=== PATIENT | female | born 1990 | race Caucasian/White ===

== ENCOUNTER 2020-06-20 22:57 | Emergency (ER) | payer MEDICAID, SELFPAY ==
[2020-06-21 01:14] VITALS: BP 119/76; PULSE 89; RESP 16; TEMP 36.8; O2SAT 96; BMI 29.6
--- NOTE | 2020-06-21 01:34 | PC.NURSE ---
MD at bedside for eval. Plan for Strep/Covid swab and DC home.
--- NOTE | 2020-06-21 01:42 | PC.NURSE ---
Anisa and Covid obtained and sent.
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
[2020-06-21] MEDS: Ibuprofen 600 MG TABLET PO (01:50)
[2020-06-21] MEDS: Penicillin V Potassium 250 MG TABLET 500 MG PO (01:50)
--- NOTE | 2020-06-21 01:51 | PC.NURSE ---
Medicated per MAR. Awaiting results of swabs.
[2020-06-21 02:02] LABS: COVID-19 Test Negative (Negative)
== END 2020-06-21 02:10 | disposition home or self-care (01) ==
PROVIDERS: Emergency Provider Emergency Medicine Emergency Medical Services; PCP Family Medicine
DX: J31.2 Chronic pharyngitis (principal); J02.8 Acute pharyngitis due to other specified organisms; R53.83 Other fatigue; Z20.822 Contact with and (suspected) exposure to COVID-19; Z79.899 Other long term (current) drug therapy
CPT/HCPCS: 36415; 87635; 87880; 99283

== ENCOUNTER 2021-03-14 10:13 | Outpatient (REF) | payer MEDICAID, SELFPAY ==
--- NOTE | ~2021-03-14 | XR_ITS ---
EXAMINATION: XR SHOULDER, LEFT CLINICAL INFORMATION: Pain in left shoulder. COMPARISON: Chest radiograph 06/21/2019. Left shoulder radiographs 05/07/2019. TECHNIQUE: AP external rotation, Grashey, scapular Y, and axillary views of the left shoulder. FINDINGS: Glenohumeral and acromioclavicular joint spacing and alignment are normal in appearance. No dystrophic soft tissue calcifications, fractures or arthropathic changes are identified. The visualized left ribs and lung are normal in appearance. XR/XR shoulder LT min 2V IMPRESSION: Normal radiographs of the left shoulder.
== END 2021-03-14 10:14 | disposition home or self-care (01) ==
LOC: HO.XRAY 10:13
PROVIDERS: Absent Provider Family Medicine; PCP Family Medicine; Visit Provider Internal Medicine Geriatric Medicine
DX: M25.512 Pain in left shoulder (principal)
CPT/HCPCS: 73030

== ENCOUNTER 2021-05-11 18:17 | Emergency (ER) | payer OTHER, MEDICAID, SELFPAY ==
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
[2021-05-11 20:42] VITALS: BP 130/78; PULSE 78; RESP 16; TEMP 36.9; O2SAT 98; BMI 31.1
[2021-05-11 23:33] VITALS: BP 122/75; PULSE 77; RESP 14; TEMP 37; O2SAT 99
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
[2021-05-12] MEDS: Ketorolac Tromethamine 60 MG/2 ML VIAL IM (00:14)
== END 2021-05-12 02:35 | disposition home or self-care (01) ==
PROVIDERS: Emergency Provider Emergency Medicine Emergency Medical Services; PCP Family Medicine
DX: S13.4XXA Sprain of ligaments of cervical spine, initial encounter (principal); M54.2 Cervicalgia; G44.309 Post-traumatic headache, unspecified, not intractable; V43.02XA Car driver injured in collision with other type car in nontraffic accident, initial encounter; Y93.9 Activity, unspecified; Y92.410 Unspecified street and highway as the place of occurrence of the external cause; Y99.9 Unspecified external cause status; Z79.899 Other long term (current) drug therapy
CPT/HCPCS: 70450; 72125; 96372; 99284; J1885

== ENCOUNTER 2021-09-29 15:44 | Emergency (ER) | payer MEDICAID, SELFPAY ==
--- NOTE | ~2021-09-29 | US_ITS ---
EXAMINATION: US OBSTETRICAL PELVIC AND TRANSVAGINAL CLINICAL INFORMATION: 7-weeks . Bleeding. Lower abdominal pain. Beta hCG equals 209,636. COMPARISON: None LMP: 08/05/2021 Gestational age by maternal dates is 7 weeks 6 days. Estimated date of delivery by maternal dates is 05/12/2022. TECHNIQUE: Transabdominal and transvaginal Grayscale Doppler, and cine images were obtained. FINDINGS: There is a single intrauterine gestational sac within the endometrial cavity with 2 separate poles. There appear to be 2 separate gestational sacs and unremarkable-appearing yolk sacs. Twin A demonstrates a crown-rump length of 1.0 cm corresponding to a gestational age of 7 weeks and 0 days and Twin B demonstrates a crown-rump length of 1.2 cm corresponding to a gestational age of 7 weeks and 3 days. There is a partially visualized probable membrane interposed between the poles. There is no significant subchorionic hemorrhage or hematoma. HR: Twin A demonstrates a heart rate of 142 bpm and Twin B demonstrates a heart rate of 153 BPM. MATERNAL ADNEXA: The right maternal ovary measures 3 x 2.4 x 2.7 cm. There is a right-sided probable corpus luteum measuring 1.7 x 1.5 x 1.7 cm. The left maternal ovary measures 1.9 x 1.1 x 1.6 cm. There is a left ovarian simple cyst versus follicle measuring 0.8 cm. There is no significant maternal adnexal mass. No maternal pelvic ascites. US/US OB pelvic and transvaginal IMPRESSION: 1. Single intrauterine gestational sac with 2 separate poles and yolk sacs as well as likely 2 separate gestational sacs. Findings are consistent with monochorionic diamniotic twins. Twin A demonstrates a heart rate of 142 bpm and Twin B demonstrates a heart rate of 153 BPM. No evidence of subchorionic hemorrhage. 2. Probable right ovarian corpus luteum measuring up to 1.7 cm.
[2021-09-29 15:45] VITALS: BP 141/88; PULSE 75; TEMP 36.8; O2SAT 99; BMI 32.1
[2021-09-29 16:47] LABS: MANUAL DIFF FLAG NO
[2021-09-29 16:48] LABS: Appearance Urine CLEAR; Basophils Percent Auto 0.2 % (0-2); Color Urine YELLOW; Eosinophils Absolute Auto 0.1 X10*3/uL (0.0-0.4); Eosinophils Percent Auto 0.4 % (0-4); Glucose Urine UA NEG (NEG); Hematocrit 38.4 % (37.0-47.0); Hemoglobin 13.1 g/dl (12.0-16.0); Imm Gran Abs Auto 0.05 X10*3/uL (0.00-0.03); Imm Gran Pct Auto 0.4 % (0.0-0.4); Leukocyte Esterase Urine NEG (NEG); Lymphocytes Absolute Auto 2.3 X10*3/uL (1.2-4.9); Lymphocytes Percent Auto 16.4 % (20-40); Mean Corpuscular HGB Conc 34.1 g/dl (31.0-35.0); Mean Corpuscular Hemoglobin 29.8 pg (27.0-33.0); Mean Corpuscular Volume 87.3 fL (80.0-98.0); Mean Platelet Volume 9.6 fL (9.4-12.3); Monocytes Absolute Auto 0.8 X10*3/uL (0.1-1.2); Monocytes Percent Auto 5.7 % (2-11); Neutrophils Absolute Auto 10.6 x10*3/uL (2.0-8.3); Neutrophils Percent Auto 76.9 % (45-73); Nitrite Urine NEG (NEG); Platelet Count 273 X10*3/uL (160-400); Red Cell Distribution Width 12.2 % (11.0-16.0); Specific Gravity - Urine >= 1.030 (1.005-1.025); UACC Culture Trigger NO; Urine Blood 3+ (NEG); Urine Ketones 40 MG/DL (NEG); Urine Protein NEG (NEG-TRACE); White Blood Count 13.8 X10*3/uL (4.8-10.8)
[2021-09-29 16:58] LABS: Squamous Epithelial Cell Urine 1+ /LPF
[2021-09-29 16:59] LABS: Bacteria Urine TRACE /LPF; Mucus Urine TRACE /LPF
[2021-09-29 17:15] LABS: Anion Gap 12 (12-20); Blood Urea Nitrogen 6 mg/dL (9-16); Calcium 10.4 mg/dL (8.4-10.2); Carbon Dioxide 23 mmol/L (22-29); Chloride 104 mmol/L (96-108); Creatinine Clr Calc Pharmacy 125.5; Estimated Glomerular Filt Rate > 60; Glucose Random 88 mg/dL (60-115); Potassium 4.2 mmol/L (3.3-5.1); Sodium 135 mmol/L (135-145)
[2021-09-29 17:26] VITALS: BP 111/70; PULSE 69; RESP 16; TEMP 37.1; O2SAT 100
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
[2021-09-29 20:00] VITALS: BP 127/79; PULSE 76; RESP 16; TEMP 36.6; O2SAT 98
== END 2021-09-29 20:09 | disposition home or self-care (01) ==
PROVIDERS: Emergency Provider Emergency Medicine Emergency Medical Services; PCP Family Medicine
DX: O20.0 Threatened abortion (principal); O09.11 Supervision of pregnancy with history of ectopic pregnancy, first trimester; O09.291 Supervision of pregnancy with other poor reproductive or obstetric history, first trimester; Z3A.01 Less than 8 weeks gestation of pregnancy
CPT/HCPCS: 36415; 76801; 76817; 80048; 81001; 84702; 85025; 86900; 86901; 99284

== ENCOUNTER 2023-04-02 11:34 | Outpatient (REF) | payer MEDICAID, SELFPAY ==
[2023-04-02 13:45] LABS: Estimated Average Glucose 103 mg/dL; Hemoglobin A1C 102.1388 umol/L; Hemoglobin A1c % 5.2 % (<6.0)
[2023-04-02 14:07] LABS: TSH reflex Free T4 3.28 uIU/mL (0.32-4.0); Vitamin D 25-OH Total 28.4 ng/mL (>30)
[2023-04-03 13:48] LABS: Calcium (PTHI) 10.1 mg/dL (8.6-10.2); PTHI 173 pg/mL (16-77)
== END 2023-04-02 11:35 | disposition home or self-care (01) ==
LOC: HO.HHCL 11:34
PROVIDERS: Visit Provider Family Medicine
DX: E55.9 Vitamin D deficiency, unspecified (principal); R94.6 Abnormal results of thyroid function studies
CPT/HCPCS: 36415; 82306; 83036; 83970; 84443

== ENCOUNTER 2023-08-11 10:21 | Outpatient (AMB) | payer MEDICAID, SELFPAY ==
--- NOTE | 2023-08-11 10:22 | MHC.OFFVIS ---
Intake Vital Signs 08/11/23 10:29 Height 5 ft 1 in Weight 186 lb BMI 35.1 BP 118/76 Blood Pressure Location Rt brachial Position Sitting Pulse 83 Intake Visit Reasons: umbilical hernia Intake Note: This patient was referred by Dr. Saul for an assessment for an umbilical hernia. Patient c/o; reports occasional sharp pain, last time patient experinced pain it lasted about 10 minutes and then it went away, reports no change in bowel habits, reports bulge. [employer] Sk[employer] Rink Required: No Accompanied by: Self / Same As Patient Allergies No Known Allergies Allergy (Unknown, Verified 08/11/23 10:29) HPI umbilical hernia HPI Details 33-year-old female referred for an umbilical hernia. She states that she has had this lump on her umbilicus since she was about 8 years ago. Since then, she has been noticing sharp pains on the area. She does not think that the hernia is getting bigger. She does have some tenderness on the area. She denies GI complaints. [facility] Medical History (Updated 08/11/23 @ 10:44 by Estevan Arias MD) Umbilical hernia Thyroid disease No known health problems Surgical History No pertinent past surgical history Family History Family/Other Cancer Social History Alcohol intake: never Patient Tobacco Use Status: Never used Tobacco Review of Systems Const Denies chills and Denies fever(s) Card Denies chest pain, Denies dyspnea and Denies dyspnea on exertion Resp Denies cough, Denies dyspnea and Denies dyspnea on exertion GI Denies hematochezia and Denies change in bowel habits Denies hematuria Musc Denies back pain and Denies limited range of motion Neuro Denies focal weakness and Denies convulsions Psych Denies depression and Denies mood swings Physical Exam Vital Signs: Last Vital Signs Pulse 83 08/11/23 10:29 BP 118/76 08/11/23 10:29 BMI result Body Mass Index 35.1 Const General: comfortable and no acute distress Orientation/consciousness: patient oriented x3 Neck Neck: Yes no lymphadenopathy Resp Auscultation: clear to auscultation bilaterally Cardio Rhythm: regular rhythm GI Other: Umbilical hernia, obvious with Valsalva, about 2 cm in diameter Palpation (GI): Soft to palpation, nontender and no guarding Neuro General: patient oriented x3 Assessment & Plan Assessment & Plan (1) Umbilical hernia: Code(s): K42.9 - Umbilical hernia without obstruction or gangrene Plan: She has this umbilical hernia, reducible, about 2 cm in diameter as described above. She describes pain and tenderness on the area. She wants to proceed with repair. I explained to her the technique of repair with possible mesh placement. I reviewed the risks including but not limited to bleeding, infections, bowel injury, recurrence, as well as the benefits and alternatives. She understands and wants to proceed. I also reviewed with her what to expect postoperatively especially with care. Coding Level of Care Code New Pt Level 3 (27031) Diagnoses Umbilical hernia K42.9
[2023-08-11 10:29] VITALS: BP 118/76; PULSE 83; BMI 35.1
== END 2023-08-11 10:43 | disposition home or self-care (01) ==
PROVIDERS: PCP Family Medicine; Referring Provider Family Medicine; Visit Provider Surgery
DX: K42.9 Umbilical hernia without obstruction or gangrene (principal)
CPT/HCPCS: 99203

== ENCOUNTER → 2023-08-11 10:21 | Outpatient (BNVA) | payer MEDICAID, SELFPAY | PROVIDERS: PCP Family Medicine; Visit Provider Surgery | DX: K42.9 Umbilical hernia without obstruction or gangrene (principal) | CPT/HCPCS: 99202 ==

== ENCOUNTER 2023-08-13 09:45 | Outpatient (REF) | payer MEDICAID, SELFPAY ==
[2023-08-13 12:13] LABS: Anion Gap 9 (12-20); Blood Urea Nitrogen 8 mg/dL (9-16); Calcium 10.3 mg/dL (8.4-10.2); Carbon Dioxide 28 mmol/L (22-29); Chloride 107 mmol/L (96-108); Estimated Glomerular Filt Rate > 60; Glucose Random 111 mg/dL (60-115); Potassium 4.1 mmol/L (3.3-5.1); Sodium 140 mmol/L (135-145)
[2023-08-13 12:17] LABS: Free T4 (Free Thyroxine) 0.79 ng/dL (0.71-1.85); Thyroid Stimulating Hormone 3.66 uIU/mL (0.32-4.0)
[2023-08-13 14:09] LABS: Parathyroid Hormone Intact 148.4 pg/mL (8.7-77.1)
[2023-08-14 15:54] LABS: Calcium, Ionized 5.6 mg/dL (4.7-5.5)
== END 2023-08-13 09:46 | disposition home or self-care (01) ==
LOC: HO.HHCL 09:45
PROVIDERS: Visit Provider Family Medicine
DX: R79.89 Other specified abnormal findings of blood chemistry (principal)
CPT/HCPCS: 36415; 80048; 82330; 83970; 84439; 84443

== ENCOUNTER 2023-08-21 13:19 | Outpatient (REF) | payer MEDICAID, SELFPAY ==
--- NOTE | ~2023-08-21 | US_ITS ---
EXAMINATION: US THYROID CLINICAL INFORMATION: Anterior neck fullness. COMPARISON: None available. TECHNIQUE: Linear transducer alex-scale and color Doppler examination with attention to the region of the thyroid. FINDINGS: SIZE: Measurements of the thyroid lobes and nodules are given in sagittal, anteroposterior and transverse dimensions respectively. Right Thyroid Lobe: 5.3 x 1.7 x 2.1 cm, volume 10.2 mL. Parenchyma: The gland echotexture is heterogeneous. Thyroid vascularity is normal. Left Thyroid Lobe: 5.1 x 1.7 x 2.3 cm, volume 10.2 mL. Parenchyma: The gland echotexture is heterogeneous. Thyroid vascularity is normal. Isthmus: 0.6 cm in maximum AP dimension. No focal thyroid nodule is seen. NODES: No lymphadenopathy is seen in the tissue surrounding the thyroid gland. US/US thyroid IMPRESSION: Unremarkable thyroid ultrasound. ACR TI-RADS RECOMMENDATION REFERENCE: Ultrasound-guided fine-needle aspiration, followup ultrasound, no further follow up. * TR1 (0 point) and TR2 (2 points): No FNA or follow up. * TR3 (3 points): FNA if more than or equal to 2.5 cm in maximum dimension, followup ultrasound in 1, 3 and 5 years if 1.5 to 2.4 cm in maximum dimension. * TR4 (4-6 points): FNA if more than or equal to 1.5 cm in maximum dimension, followup ultrasound in 1, 2, 3 and 5 years if 1 to 1.4 cm in maximum dimension. * TR5 (more than or equal to 7 points): FNA if more than or equal to 1 cm in maximum dimension, followup ultrasound every year for 5 years if 0.5 to 0.9 cm in maximum dimension. * TR3, TR4 or TR5 nodules that are below the size threshold for followup receive no follow up.
== END 2023-08-21 13:20 | disposition home or self-care (01) ==
LOC: HO.US 13:19
PROVIDERS: PCP Family Medicine; Visit Provider Family Medicine
DX: R22.1 Localized swelling, mass and lump, neck (principal)
CPT/HCPCS: 76536

== ENCOUNTER → 2023-09-09 08:50 | Outpatient (BNVA) | payer MEDICAID, SELFPAY | PROVIDERS: PCP Family Medicine; Visit Provider Surgery ==

== ENCOUNTER 2023-09-16 14:25 | Outpatient (REF) | payer MEDICAID, SELFPAY | END 2023-09-16 14:26 | disposition home or self-care (01) | LOC: HO.HOSX 14:25 | PROVIDERS: Visit Provider Physician Assistant | DX: Z13.89 Encounter for screening for other disorder (principal) ==

== ENCOUNTER 2023-10-07 08:48 | Outpatient (REF) | payer MEDICAID, SELFPAY ==
--- NOTE | ~2023-10-07 | CT_ITS ---
EXAMINATION: CT SOFT TISSUE NECK WITH CONTRAST CLINICAL INFORMATION: Anterior neck fullness. COMPARISON: Ultrasound of the thyroid 08/21/2023. CT scan of the head and cervical spine 05/12/2021. TECHNIQUE: Following the intravenous administration of 60 mL of Omnipaque 350 intravenous contrast, helical imaging was performed in the axial plane with generation of coronal and sagittal reformatted images. This CT examination was performed using dose optimization techniques as appropriate, variously including the following: *Automated exposure control *Adjustment of mA and/or kV according to patient size (this includes techniques or standardized protocols for targeted exams where dose is matched to indication/reason for exam; i.e. extremities or head) *Use of iterative reconstruction technique DLP: 287 mGy-cm FINDINGS: There is no cervical adenopathy. There are mildly prominent cervical lymph nodes at multiple levels, most prominent in the right level IIA region. The parotid glands are homogeneous in attenuation. The submandibular glands are normal. There is slight asymmetry of the palatine tonsils, more prominent on the right, but without evidence of abscess formation. No contour abnormality or pathologic enhancement is seen within the oral cavity or pharyngeal mucosal space. There is a minimal amount of increased attenuation in the submental fat which is nonspecific. No radiodense foreign bodies or adjacent dental abnormalities are demonstrated. The laryngeal structures are normal. The parapharyngeal fat is preserved. The carotid sheath vasculature opacify normally. No extra mucosal soft tissue mass or fluid collection is seen. No retropharyngeal fluid collection is seen. The thyroid gland appears normal in size. There is a tubular, well-defined hyperdense area extending behind the body of the left lobe of the thyroid gland which measures 0.8 x 1.9 x 2.7 cm in oblique AP, transverse and craniocaudal dimensions. It has higher attenuation to the adjacent thyroid gland, and appears to be separate from it. The superior mediastinum is unremarkable. The lung apices are clear. The mastoid air cells and visualized portions of the paranasal sinuses are well-aerated. The temporomandibular joints are normal. No periapical disease is identified. No osseous abnormalities are seen. The imaged portions of the brain parenchyma are unremarkable. CT/CT soft tissue neck w IV con IMPRESSION: 1. There are mildly prominent cervical lymph nodes at multiple levels, most prominent in the right level IIA region. 2. There is a well-defined tubular hyperdense focus behind the left lobe of the thyroid gland, which may be consistent with a parathyroid adenoma with hypervascularity. This could be further evaluated with a parathyroid nuclear medicine scan with SPECT. 3. There is mild increased attenuation in the submental fat which is nonspecific. There are no radiodense foreign bodies or adjacent dental abnormalities. Correlate clinically.
[2023-10-07] MEDS: iohexoL 350 MG/ML 100 ML INFUS..BTL IV (09:25)
== END 2023-10-07 08:49 | disposition home or self-care (01) ==
LOC: HO.CT 08:48
PROVIDERS: PCP Family Medicine; Visit Provider Family Medicine
DX: R22.1 Localized swelling, mass and lump, neck (principal)
CPT/HCPCS: 70491; Q9967

== ENCOUNTER 2024-02-20 14:21 | Outpatient (REF) | payer MEDICAID, SELFPAY ==
--- NOTE | ~2024-02-20 | MM_ITS ---
EXAMINATION: BONE DENSITOMETRY CLINICAL INDICATION: Primary hyperparathyroidism. COMPARISON: This is the patient's baseline examination. TECHNIQUE: Using a [employer] DXA System (software version: 13.1) manufactured by [employer], dual-energy x-ray absorptiometry was performed of the lumbar spine, left hip and left forearm radius 33%. The images are of good technical quality. Based on ISCD (International Society for Clinical Densitometry) standards of reporting, Z-scores instead of T-scores are reported in this premenopausal woman. Summary results are attached. FINDINGS: LEFT FEMUR, NECK: BMD 0.917 g/cm2, T-score -0.9, Z-score -1.0, Z-score within expected range for age. LEFT FEMUR, TOTAL: BMD 0.946 g/cm2, T-score -0.5, Z-score -0.8, Z-score within expected range for age. AP SPINE L1-L4: BMD 1.024 g/cm2, T-score -1.3, Z-score -1.9, Z-score within expected range for age. LEFT FOREARM RADIUS 33%: BMD 0.933 g/cm2, T-score 0.7, Z-score 0.7, Z-score within expected range for age. IDENTIFIED RISK FACTORS: Hyperthyroidism , secondary osteoporosis (hyperthyroidism). HISTORY OF FRACTURE: None listed. MEDICATIONS: None listed. MM/XR DEXA appendicular skeleton IMPRESSION: 1. DIAGNOSIS: Based on the lowest Z-score value of -1.9 in the lumbar spine, the patient's bone density is within the expected range for age. 2. 10-YEAR FRACTURE RISK PREDICTION, FRAX: Not performed in this patient outside the age range of 40-90 years. 3. Treatment Recommendations: NOF guidelines recommend consideration for treatment in postmenopausal women and men age 50 and older presenting with the following: -A hip or vertebral (clinical or morphometric) fracture. -T-score less than or equal to -2.5 at the femoral neck or spine after appropriate evaluation to exclude secondary causes. -Low bone mass at the hip or spine and a 10-year fracture probability by FRAX of greater than or equal to 3% for hip fracture or greater than or equal to 20% for major osteoporotic fracture based on the [place] adapted WHO algorithm. 4. Other Recommendations: All treatment decisions require clinical judgment and consideration of individual patient factors, including patient preferences, comorbidities, previous drug use, risk factors not captured in the FRAX model (e.g. frailty, falls, vitamin D deficiency, increased bone turnover, interval significant decline in bone density) and possible under or overestimation of fracture risk by FRAX. FUTURE SCAN RECOMMENDATION: People with diagnosed cases of osteoporosis or at high risk for fracture should have regular bone mineral density tests. For patients eligible for Medicare, routine testing is allowed once every 2 years. The testing frequency can be increased to one year for patients who have rapidly progressing disease, those who are receiving or discontinuing medical therapy to restore bone mass, or have additional risk factors. Electronically signed by: Lolita Martinez MD 03/10/2024 08:10 AM EDT RP
== END 2024-02-20 14:22 | disposition home or self-care (01) ==
LOC: HO.MAMMO 14:21
PROVIDERS: PCP Family Medicine; Visit Provider Family Medicine
DX: Z13.820 Encounter for screening for osteoporosis (principal); E21.0 Primary hyperparathyroidism
CPT/HCPCS: 77081

== ENCOUNTER 2024-05-03 11:28 | Outpatient (REF) | payer MEDICAID, SELFPAY ==
[2024-05-03 13:34] LABS: Hematocrit 40.3 % (37.0-47.0); Hemoglobin 12.8 g/dl (12.0-16.0); Mean Corpuscular HGB Conc 31.8 g/dl (31.0-35.0); Mean Corpuscular Hemoglobin 25.9 pg (27.0-33.0); Mean Corpuscular Volume 81.6 fL (80.0-98.0); Mean Platelet Volume 10.2 fL (9.4-12.3); Platelet Count 347 X10*3/uL (160-400); Red Blood Count 4.94 X10*6/uL (4.20-5.50); Red Cell Distribution Width 15.1 % (11.0-16.0); White Blood Count 7.1 X10*3/uL (4.8-10.8)
[2024-05-03 14:03] LABS: Estimated Average Glucose 111 mg/dL; Hemoglobin A1C 121.6252 umol/L; Hemoglobin A1c % 5.5 % (<6.0); Total Hemoglobin (HGBA1C) 3296.3131 umol/L
[2024-05-03 14:21] LABS: Parathyroid Hormone Intact 168.3 pg/mL (8.7-77.1)
[2024-05-03 14:30] LABS: Alanine Aminotransferase 39 U/L (0-31); Albumin Level 3.9 g/dL (3.5-5.0); Alkaline Phosphatase 113 U/L (39-117); Anion Gap 9 (12-20); Aspartate Amino Transferase 27 U/L (5-31); Bilirubin Direct 0.1 mg/dL (0.0-0.5); Bilirubin Total 0.4 mg/dL (0.0-1.0); Blood Urea Nitrogen 11 mg/dL (9-16); Calcium 10.3 mg/dL (8.4-10.2); Carbon Dioxide 27 mmol/L (22-29); Chloride 108 mmol/L (96-108); Cholesterol 160 mg/dL (<200); Estimated Glomerular Filt Rate > 60; Free T4 (Free Thyroxine) 0.87 ng/dL (0.71-1.85); Glucose Random 102 mg/dL (60-115); HDL Cholesterol 45 mg/dL (>40); LDL Cholesterol Calculated 103 mg/dL (<100); Potassium 4.8 mmol/L (3.3-5.1); Sodium 139 mmol/L (135-145); Thyroid Stimulating Hormone 2.26 uIU/mL (0.32-4.0); Total Protein 7.6 g/dL (6.5-8.0); Triglycerides 62 mg/dL (<150); Vitamin D 25-OH Total 15.6 ng/mL (>30)
[2024-05-03 15:21] LABS: CT PCR NOT DETECTED (Not Detect.); NG PCR NOT DETECTED (Not Detect.)
[2024-05-04 04:12] LABS: HBsAGNum1 0.48 S/CO (0.00-0.99); HIV AB/AG Nonreactive (Nonreactive); HIV Num 1 0.04 S/CO (0.00-0.99); Hepatitis B Surface Antigen Negative (Negative); ~HepC Num1 0.43 S/CO (0.00-0.79); ~Hepatitis B Surface Antibody REACTIVE (Nonreactive); ~Hepatitis C Antibody Nonreactive (Nonreactive)
[2024-05-04 12:48] LABS: Calcium, Ionized 5.7 mg/dL (4.7-5.5)
[2024-05-04 15:28] LABS: RPR Rapid Plasma Reagin NON-REACTIVE (NON-REACTIVE)
== END 2024-05-03 11:29 | disposition home or self-care (01) ==
LOC: HO.HHCL 11:28
PROVIDERS: Visit Provider Family Medicine
DX: E21.3 Hyperparathyroidism, unspecified (principal)
CPT/HCPCS: 80048; 80061; 80076; 82306; 82330; 83036; 83970; 84439; 84443; 85027; 86592; 86706; 86803; 87340; 87389; 87491; 87591

== ENCOUNTER 2024-05-11 13:20 | Outpatient (REF) | payer MEDICAID, SELFPAY | END 2024-05-11 13:21 | disposition home or self-care (01) | LOC: HO.US 13:20 | PROVIDERS: PCP Family Medicine; Visit Provider Family Medicine | DX: E21.3 Hyperparathyroidism, unspecified (principal); R22.1 Localized swelling, mass and lump, neck | CPT/HCPCS: 76536 ==

== ENCOUNTER 2024-10-19 09:41 | Outpatient (REF) | payer MEDICAID, SELFPAY ==
--- OUTSIDE RECORDS SUMMARY | 2024-10-19 10:40 | XMS_ITS | Encounter Summary ---
Author Organization [employer] Address [address] [facility] [address] [place] [address] Care Team Providers Care Cream Tester Name Role Phone Cherrie Saul DO Primary Care Provider + [phone] Encounter Details Date Type Department Care Team ([facility] Contact Info) Description 12/15/2023 Telephone [facility] [address] [place] [address] Cherrie Saul DO [address] [place] [address] Social History Tobacco Use Types Packs/Day Years Used Date Smoking Tobacco: Never Smokeless Tobacco: Never Alcohol Use Standard Drinks/Week Comments Never 0 (1 standard drink = 0.6 oz pur e alcohol) Depression Answer Date Recorded Patient Health Questionnaire-9 Score 0 04/02/2023 Patient Health Questionnaire-9 Score 0 04/02/2023 Last PHQ-9: Questionnaire Data Not on file 1 06/02/2022 Housing Stability Answer Date Recorded What is your housing situation today? I have david kate 04/02/[address] you li ve. Do you have problems with any of the following? None of the above 04/02/2023 Food Insecurity Answer Date Recorded Within the past 12 months, y ou worried that your food would run out before you got money to buy more: Never True 04/02/2023 Within the past 12 months,th e food you bought just didn't last and you didn't have enough money to get more: Never True 06/2022 Transportation Answer Date Recorded In the past 12 months, has l ack of transportation kept you from medical appts, meetings, work or from getting things needed for daily living? No 04/02/2023 Utilities Answer Date Recorded In the past 12 months, has t he electric, gas, oil or water company threatened to shut off services in your home? No 04/02/2023 Depression Answer Date Recorded Patient Health Questionnaire-2 Score 0 04/02/2023 Comments Unknown Sex and Gender Information Value Date Recorded Sex Assigned at Female 04/01/2022 10:15 AM EDT Legal Sex Female 10:15 AM EDT Gender Identity Female 04/01/2022 10:15 AM EDT Sexual Orientation Straight 04/01/2022 10 :15 AM EDT documented as of this encounter Plan of Treatment Upcoming Encounters Date Type Department Care Team (Late st Contact Info) Description 12/24/2024 11:45 AM EDT Office Visit [facility] [address] [place] [phone] Demetra Kaplan MD [address] [place] [address] documented as of this encounter Visit Diagnoses Not on filedocumented in this encounter Additional Health Concerns Assessment Noted Time PHQ-9 Depression Total Score: 0 04/02/20 23 10:56 AM EDT documented as of this encounter Care Teams Cream Tester Relationship Specialty Start Date End Date Cherrie Saul DO [address] [place] [id number] PCP - General Family Medicine 02/24/15 documented as of this encounter
--- OUTSIDE RECORDS SUMMARY | 2024-10-19 10:40 | XMS_ITS | Encounter Summary ---
Author Organization [employer] Address [address] [facility] [address] [address] [place] [address] Care Team Providers Care Form Setter/Driver Name Role Phone CaliCherrie avilez Primary Care Provider + [phone] Encounter Details Date Type Department Care Team (Latest Contact Info) Description 10/19/2024 Travel Social History Tobacco Use Types Packs/Day Years [...] Patient Health Questionnaire-2 Score 0 04/02/2023 Comments No Sex and Gender Information Value Date Recorded Sex Assigned at Female 04/01/2022 10:15 AM EDT Legal Sex Female 10:15 AM EDT Gender Identity Female 04/01/2022 10:15 AM EDT Sexual Orientation Straight 04/01/2022 10 :15 AM EDT documented as of this encounter Plan of Treatment Upcoming Encounters Date Type Department Care Team (Late st Contact Info) Description 12/24/2024 11:45 AM EDT Office Visit [facility] [address] [place] [address] Demetra Kaplan MD [address] [place] [address] documented as of this encounter Visit Diagnoses Not on filedocumented in this encounter Additional Health Concerns Assessment Noted Time PHQ-9 Depression Total Score: 0 04/02/20 23 10:56 AM EDT documented as of this encounter Care Teams Form Setter/Driver Relationship Specialty Start Date End Date Cherrie Saul DO [address] [place] [address] PCP - General Family Medicine 02/24/15 documented as of this encounter
--- OUTSIDE RECORDS SUMMARY | 2024-10-19 10:40 | XMS_ITS | Encounter Summary ---
Author Organization [employer] Address [address] [facility] [address] [place] [address] Care Team Providers Care Steamboat Captain Name Role Phone Cherrie Saul DO Primary Care Provider + [phone] Encounter Details Date Type Department Care Team (Latest Contact Info) Description 10/19/2024 9:00 AM EDT Office Visit [facility] [address] [place], [place] [phone] Cherrie Saul DO [address] [place], [place] [phone] Hyperparathyroidism (CMS/HCC) (Primary Dx); Neck fullness; Chronic scapular pain; Umbilical hernia without obstruction and without gangrene; Right arm pain; Chronic bilateral low back pain without sciatica; Healthcare maintenance Social History Tobacco Use Types Packs/Day Years [...] AM EDT documented as of this encounter Last Filed Vital Signs Vital Sign Reading Time Taken Comments Blood Pressure 124/78 10/19/2024 8:52 AM EDT Pulse 88 10/19/2024 8:52 AM EDT Temperature 36.2 ??C (97.1 ??F) 10/19/2024 8:52 AM ED T Respiratory Rate 20 10/19/2024 8:52 AM EDT Oxygen Saturation 98% 10/19/2024 8:52 AM EDT Inhaled Oxygen Concentration - - Weight 73.5 kg (162 lb) 10/19/2024 8:52 AM EDT Height 157.5 cm (5' 2 ) 10/19/2024 8:52 AM EDT Body Mass Index 29.63 10/19/2024 8:52 AM EDT documented in this encounter Plan of Treatment Upcoming Encounters Date Type Department Care Team (Late st Contact Info) Description 12/24/2024 11:45 AM EDT Office Visit [facility] [address] [place] [address] Demetra Kaplan MD [address] [place], [place] [phone] Scheduled Orders Name Type Priority Associated Diagnoses Orde r Schedule MARTHA Screen,IFA, with Reflex to Titer and Pattern Lab Routine Hyperparathyroidism (CMS/HCC) Neck fullness Chronic scapular pain Umbilical hernia without obstruction and without gangrene Right arm pain Chronic bilateral low back pain without sciatica Healthcare maintenance Expected: 10/19/2024 (Approximate), Expires: 10/19/2025 Lyme Disease Ab with Reflex to Blot (IgG, IgM) Lab Routine Hyperparathyroidism (CMS/HCC) Neck fullness Chronic scapular pain Umbilical hernia without obstruction and without gangrene Right arm pain Chronic bilateral low back pain without sciatica Healthcare maintenance Expected: 10/19/2024, Expires: 10/19/2025 Rheumatoid Factor Lab Routine Hyperparathyroidism (CMS/HCC) Neck fullness Chronic scapular pain Umbilical hernia without obstruction and without gangrene Right arm pain Chronic bilateral low back pain without sciatica Healthcare maintenance Expected: 10/19/2024, Expires: 10/19/2025 Sed Rate by Modified Marcoergren Lab Routine Hyperparathyroidism (CMS/HCC) Neck fullness Chronic scapular pain Umbilical hernia without obstruction and without gangrene Right arm pain Chronic bilateral low back pain without sciatica Healthcare maintenance Expected: 10/19/2024, Expires: 10/19/2025 C-reactive Protein Lab Routine Hyperparathyroidism (CMS/HCC) Neck fullness Chronic scapular pain Umbilical hernia without obstruction and without gangrene Right arm pain Chronic bilateral low back pain without sciatica Healthcare maintenance Expected: 10/19/2024 (Approximate), Expires: 10/19/2025 Creatine Kinase, Total Lab Routine Hyperparathyroidism (CMS/HCC) Neck fullness Chronic scapular pain Umbilical hernia without obstruction and without gangrene Right arm pain Chronic bilateral low back pain without sciatica Healthcare maintenance Expected: 10/19/2024, Expires: 10/19/2025 CBC auto differential Lab Routine Hyperparathyroidism (CMS/HCC) Neck fullness Chronic scapular pain Umbilical hernia without obstruction and without gangrene Right arm pain Chronic bilateral low back pain without sciatica Healthcare maintenance Expected: 10/19/2024 (Approximate), Expires: 10/19/2025 Basic Metabolic Panel Lab Routine Hyperparathyroidism (CMS/HCC) Neck fullness Chronic scapular pain Umbilical hernia without obstruction and without gangrene Right arm pain Chronic bilateral low back pain without sciatica Healthcare maintenance Expected: 10/19/2024 (Approximate), Expires: 10/19/2025 documented as of this encounter Visit Diagnoses Diagnosis Hyperparathyroidism (CMS/HCC)- Primary Hyperparathyroidism, unspecified Neck fullness Chronic scapular pain Umbilical hernia without obstruction and without gangrene Right arm pain Pain in soft tissues of limb Chronic bilateral low back pain without sciatica Healthcare maintenance documented in this encounter Additional Health Concerns Assessment Noted Time PHQ-9 Depression Total Score: 0 04/02/20 23 10:56 AM EDT documented as of this encounter Care Teams Steamboat Captain Relationship Specialty Start Date End Date Cherrie Saul DO [address] [place] [id number] PCP - General Family Medicine 02/24/15 documented as of this encounter
--- OUTSIDE RECORDS SUMMARY | 2024-10-19 10:40 | XMS_ITS | Encounter Summary ---
Author Organization [facility] Address [address] [place] [address] Care Team Providers Care Gym Supervisor Name Role Phone Cherrie Saul DO Primary Care Provider [phone] Reason for Visit * Reason Onset Date Comments Med Refill 10/19/2024 Zepbound 10MG Encounter Details Date Type Department Care Team (Late st Contact Info) Description 10/19/2024 Telephone [facility] [place] [address] [address] Chasity Koo MD [address] [phone] Med Refill (Zepbound 10MG) Social History Tobacco Use Types Packs/Day Years Used Date Smoking Tobacco: Never Assessed Comments Unknown Sex and Gender Information Value Date Recorded Sex Assigned at Not on file Legal Sex Female 11:03 AM EDT Gender Identity Not on file Sexual Orientation Not on file documented as of this encounter Progress Notes * Prisca Juarez - 10/19/2024 10:17 AM EDT Patient did well on Zepbound 10 mgs and would like remain at 10MG. If appropriate, please send script for Zepbound 10 mgs to their pharmacy. The patient does have a follow up in 02/22/2025 documented in this encounter Plan of Treatment Upcoming Encounters Date Type Department Care Team (Late st Contact Info) Description 02/22/2025 1:45 PM EDT Office Visit [facility] [place] [address] [address] Chasity Koo MD [address] [place] [phone] documented as of this encounter Visit Diagnoses Not on filedocumented in this encounter Care Teams Gym Supervisor Relationship Specialty Start Date End Date Cherrie Saul DO [address] [place] [address] PCP - General Family Medicine 04/14/24 documented as of this encounter
--- OUTSIDE RECORDS SUMMARY | 2024-10-19 10:40 | XMS_ITS | Encounter Summary ---
Author Organization [facility] Address [id number] [place] [phone] Care Team Providers Care Center Hole Reamer Name Role Phone Cherrie Saul DO Primary Care Provider [phone] Reason for Visit * Reason Onset Date Comments Med Refill 09/16/2024 Zepbound Encounter Details Date Type Department Care Team (Late st Contact Info) Description 09/16/2024 Telephone Bariatric Surgery - [place] [address] [phone] Chasity Koo MD [address] [address] Med Refill (Zepbound) Social History Tobacco Use Types Packs/Day Years Used Date Smoking Tobacco: Never Assessed Comments Unknown Sex and Gender Information Value Date Recorded Sex Assigned at Not on file Legal Sex Female 11:03 AM EDT Gender Identity Not on file Sexual Orientation Not on file documented as of this encounter Progress Notes * Ida Braswell - 09/16/2024 3:57 PM EDT Patient did well on Zepbound 10 mgs and would like a refill . If appropriate, please send script for Zepbound 10 mgs to their pharmacy. The patient does have a follow up in 02/22/2025 documented in this encounter Plan of Treatment Upcoming Encounters Date Type Department Care Team (Late st Contact Info) Description 02/22/2025 1:45 PM EDT Office Visit Bariatric Surgery - [place] [address] [phone] Chasity Koo MD [address] [address] documented as of this encounter Visit Diagnoses Not on filedocumented in this encounter Care Teams Center Hole Reamer Relationship Specialty Start Date End Date Cherrie Saul DO 230 [place], [place] PCP - General Family Medicine 04/14/24 documented as of this encounter
--- OUTSIDE RECORDS SUMMARY | 2024-10-19 10:40 | XMS_ITS | Encounter Summary ---
Author Organization [email or web address] [facility] Address [address] [place] [address] [address] [place] [address] Care Team Providers Care Pathology Secretary Name Role Phone Cherrie Saul DO Primary Care Provider + [phone] Encounter Details Date Type Department Care Team (Latest Contact Info) Description 03/22/2019 Abstract [facility] CONVERSIONS Dental, Provider, DDS Social History Tobacco Use Types Packs/Day Years [...] Description 12/24/2024 11:45 AM EDT Office Visit [facility] MEDICINE 230 [place] [address] Demetra Kaplan MD 230 [place] [address] documented as of this encounter Visit Diagnoses Not on filedocumented in this encounter Care Teams Pathology Secretary Relationship Specialty Start Date End Date Cherrie Saul DO 230 [place] [address] PCP - General Family Medicine 02/24/15 documented as of this encounter
--- OUTSIDE RECORDS SUMMARY | 2024-10-19 10:40 | XMS_ITS | Encounter Summary ---
Author Organization [employer] Address [address] [facility] 7t [place] [address] Care Team Providers Care Curtain Mender Name Role Phone Cherrie Saul DO Primary Care Provider + [phone] Reason for Visit * Reason Onset Date Comments Chart Prep 10/14/2024 Encounter Details Date Type Department Care Team ([facility] Contact Info) Description 10/14/2024 Telephone [facility] 230 [place], [place] [phone] Cherrie Saul DO 230 [place], [place] [phone] Chart Prep Social History Tobacco Use Types Packs/Day Years [...] AM EDT documented as of this encounter Miscellaneous Notes * Telephone Encounter - Layla Sanchez [place] - 10/14/2024 8:20 AM EDT Chart Prep Labs: done Images: done MRI Neck Report-08/03/24([facility]) Referrals: complete [facility] Endocrinology Note-09/14/24 ENT pending appointment Vaccines due: Covid, Flu, and HPV Screenings: LMP Overdue care gaps: SBIRT, SDOH, PHQ-9, MARLEY-7, Oral health screening, and Disability screen documented in this encounter Plan of Treatment Upcoming Encounters Date Type Department Care Team (Late st Contact Info) Description 12/24/2024 11:45 AM EDT Office Visit [facility] 230 [place] [address] Demetra Kaplan MD 230 [place] [address] documented as of this encounter Visit Diagnoses Not on filedocumented in this encounter Additional Health Concerns Assessment Noted Time PHQ-9 Depression Total Score: 0 04/02/20 23 10:56 AM EDT documented as of this encounter Care Teams Curtain Mender Relationship Specialty Start Date End Date Cherrie Saul DO 230 [place] [address] PCP - General Family Medicine 02/24/15 documented as of this encounter
--- OUTSIDE RECORDS SUMMARY | 2024-10-19 10:40 | XMS_ITS | Clinical Summary ---
Author Organization [employer] Address [address] [facility] 7t [place] [address] Care Team Providers Care Private Secretary Name Role Phone Cherrie Saul DO Primary Care Provider Allergies No known active allergies Medications cholecalciferol (Vitamin D-3) 50 MCG (1999) capsuleIndicati ons:Vitamin D deficiency Take 1 capsule by oral route once daily 90 capsule 3 3 Active baclofen (Lioresal) 10 MG tablet Take 1 tablet (10 mg) by mouth 3 times daily. 60 tablet 3 4 05/03/20 25 Active naproxen (Naprosyn) 500 MG tablet Take 1 tablet (500 mg) by mouth if needed in the morning and at bedtime for mild pain. 40 tablet 1 4 05/03/20 25 Active Diclofenac Sodium 1 % gel Apply 2 g topically if needed in the morning and at bedtime (pain). 150 g 3 4 Active acetaminophen (Tylenol 8 Hour) 650 MG ER tablet Take 1 tablet (650 mg) by mouth every 8 (eight) hours if needed for mild pain. Do not crush, chew, or split. 50 tablet 1 4 05/03/20 25 Active Active Problems Problem Noted Date Diagnosed Date Hyperparathyroidism 08/14/2023 Healthcare maintenance 08/14/2023 Chronic scapular pain 07/24/2023 BMI 35.0-35.9,adult 07/24/2023 Vitamin D deficiency 07/24/2023 Resolved Problems Problem Noted Date Diagnosed Date Resolved Date Elevated parathyroid hormone 08/14/2023 08/14/2023 Hernia, abdominal 11/20/2021 07/24/2023 Overview (09/04/2022): Reported by patient Last Assessment & Plan: Reports having discomfort from pre-existing hernia. Bought a support binder for comfort but isn't sure how to wear it. Advised she can bring it to her next appointment for assistance of look for online video instructions. Encounters Date Type Department Care Team Description 10/19/2024 9:00 AM EDT Office Visit [facility] [place] [address] Cherrie Saul DO Hyperparathyroidism (CMS/HCC) (Primary Dx); Neck fullness; Chronic scapular pain; Umbilical hernia without obstruction and without gangrene; Right arm pain; Chronic bilateral low back pain without sciatica; Healthcare maintenance 10/19/2024 Travel 10/14/[address] [facility] MED[facility] [place] [address] Cherrie Saul DO Chart Prep 10/11/2024 Patient Outreach [facility] [place] [address] Cherrie Saul DO Pre-visit Planning (Pre visit planning LVM ) 08/13/2024 Population Health Risk Score [facility] () Department [address] [place] [phone] Provider, Population Health Generic 08/09/2024 Orders Only [facility] [place] [address] Cherrie Saul DO Neck mass (Primary Dx); Abnormal MRI, neck 08/05/[address] [facility] [place] [address] Cherrie Saul DO Recall Appt. 08/05/2024 Travel 08/05/[address] [facility] PEDIATRICS [facility] [place] [address] Cherrie Saul DO crtical lab from Last 3 Months Immunizations Immunization Administration Dates Next Due DTaP 05/03/1997, 5,02/01/1991,11/30,1990 HPV, Quadrivalent 05/27/2007 Hep B, Adolescent or Pediatric 07/03/1998,1997,08/01/1997 Hib (HbOC) 05/03/1997, 3,02/01/1991,11/30 IPV 05/03/1997, 5,1990,07/31 Influenza injectable quadriv alent IIV4 with preservative 05/19/2017 Influenza injectable quadriv alent preservative free 03/24/2022,05/10/2020,08/13/2018 Influenza, Split (incl. elsy fied surface antigen) 02/19/2013 MMR 07/31/1993,08/31/1992 Meningococcal MCV4P [id number]-135 05/27/2007 Pfizer Covid-19 Vaccine 12+ 07/30/2020, Pneumococcal Conjugate PCV 20 12/02/2023 TD (adult), 2 Lf tetanus tox oid, preservative free, adsorbed 03/10/2003 Tdap 01/18/2015 Varicella 10/31/1994 Family History Medical History Relation Name Comments Hypertension Brother Kidney disease Brother Depression Mother Diabetes Mother Hypothyroidism Mother Cancer Mother's Sister Relation Name Status Comments Brother Mother Mother's Sister Social History Tobacco Use Types Packs/Day Years Used Date Smoking Tobacco: Never Smokeless Tobacco: Never Tobacco Cessation:Counseling Given: Not Answered Alcohol Use Standard Drinks/Week Comments Never 0 [...] Orientation Straight 04/01/2022 10 :15 AM EDT Last Filed Vital Signs Vital Sign Reading [...] Mass Index 29.63 10/19/2024 8:52 AM EDT Plan of Treatment Upcoming Encounters Date Type Department Care Team (Late st Contact Info) Description 12/24/2024 11:45 AM EDT Office Visit [facility] MEDICINE 230 [place] [address] Demetra Kaplan MD 230 [place], [place] [phone] Health Maintenance Due Date Last Done Comments Disability Screening 1990 Family Planning (PISQ) 2005 HPV Vaccines (2 - 3-dose series) 06/24/2007 05/27/2007 COVID-19 Vaccine ( season) 2024 04/13/2021, 07/30/2020, 07/10/2020 Influenza Vaccine (#1) 2024 , 05/10/2020, 08/13/2018, Additional history exists Depression Screening 04/02/2024 04/02/2023, 04/02/20 SDOH Screening 04/02/2024 04/02/2023 DTaP/Tdap/Td Vaccines (6 - Td or Tdap) 01/18/2025 01/18/2015, 03/10/2003, 05/03/1997, Additional history exists Cervical Cancer Screening 07/12/2025 HPV/Cotest 07/12/2025 07/12/2020 Pap Smear 07/12/2025 07/12/2020 Alcohol/Substance Use Screening 10/19/2025 10/19/2024 Tobacco Screening 10/19/2025 10/19/2024 Lipid Panel 05/03/2029 05/03/2024, 0 09/2022, 07/27/2021, Additional history exists Zoster Vaccines (1 of 2) 2040 RSV Patients and Patients Aged 60 years or older (1 - 1-dose 75+ series) 2065 HIB Vaccines Completed 05/03/1997, 06/1992, 02/01/1991, Additional history exists IPV Vaccines Completed 05/03/1997, 0 07/1994, 1990, Additional history exists Hepatitis B Vaccines Completed 07/03/1998, 11/28/1997, 08/01/1997 Meningococcal Vaccine Completed 05/27/2007 Pneumococcal Vaccine: Pediatrics (0 to 5 Years) and At-Risk Patients (6 to 49) Years) Aged Out 12/02/2023 No longer eligible based on patient's age to complete this topic HIV Screening Completed 05/03/2024, 0 09/2022, 07/27/2021, Additional history exists Hepatitis C Screening Completed 05/03/2024 , 09/04/2022, 07/27/2021, Additional history exists Hepatitis A Vaccines Aged Out No long er eligible based on patient's age to complete this topic Meningococcal B Vaccine Aged Out No l onger eligible based on patient's age to complete this topic RSV under 20 months Aged Out No longe r eligible based on patient's age to complete this topic Rotavirus Vaccines Aged Out No longer eligible based on patient's age to complete this topic Procedures Procedure Name Priority Date/Time Associated Diagnosis Comments MR NECK SOFT TISSUE ONLY W AND WO CONTRAST Urgent 08/03/2024 Neck mass HEPATITIS C AB W/REFL TO HCV RNA, QN, PCR Routine 05/03/2024 11:31 AM EST Hyperparathyroidism (CMS/HCC) HIV 1/2 ANTIGEN/ANTIBODY, FOURTH GENERATION W/RFL Routine 05/03/2024 11:31 AM EST Hyperparathyroidism (CMS/HCC) LIPID PANEL, STANDARD Routine 05/03/2024 11:31 AM EST Hyperparathyroidism (CMS/HCC) HM PAP/HPV Routine 07/12/2020 from Last 3 Months or Most Recently Relevant to Health Maintenance Results * Mr Neck Soft Tissue only w/ and w/o Contrast (08/03/2024) Anatomical Region Laterality Modality Head, Neck Magnetic Resonan ce Cherrie Saul DO IMG MRI PROCEDURES Final Res ult * Hepatitis C Antibody with Reflex to HCV, RNA, Quantitative, Real-Time PCR (05/03/2024 11:31 AM EST) Hepatitis C Antibody Nonreactive Nonreactive [facility] Comment:Antibodies to HCV no t detected; does not exclude early acuteHCV infection. Blood Venous blood specimen / Unknown 05/03/2024 11:31 AM EST 05/03/2024 1:18 PM EST Cherrie Saul DO LAB BLOOD ORDERABLES Final R esult [facility] [address] [place] [phone] * HIV-1/2 Antigen and Antibodies, Fourth Generation, with Reflexes (05/03/2024 11:31 AM EST) HIV AB/AG Nonreactive Nonreactive [facility] Comment:HIV-1 p24 Ag and/or HIV-1/HIV-2 Ab not detected.A test result that is nonreactive does not exclude thepossibility of exposure to or infection with HIV-1 and/orHIV-2. Nonreactive results in this assay for individualswith prior exposure to HIV-1 and/or HIV-2 may be due toantigen and antibody levels that are below the limit ofdetection of this assay.The Mir[employer]ulins HIV Ag/Ab Combo assay result andsupplemental assay results should be interpreted inconjunction with the patient's clinical presentation,history and other laboratory results. If the results areinconsistent with clinical evidence, additional testing issuggested to confirm the result. Blood Venous blood specimen / Unknown 05/03/2024 11:31 AM EST 05/03/2024 1:18 PM EST us Cherrie Saul DO LAB BLOOD ORDERABLES Final R esult [facility] [address] [place] [phone] * (ABNORMAL) Lipid Panel, Standard (05/03/2024 11:31 AM EST) Triglycerides 62 <150 mg/dL [facility] Comment:Desirable Triglyceri de: less than 150 mg/dLBorderline High Triglyceride 150-199 mg/dLHigh Triglyceride: 200-499 mg/dLVery High Triglyceride: greater than or equal to 5OO mg/dL Cholesterol 160 <200 mg/dL [facility] Comment:Desirable Cholestero l: less than 200 mg/dLBorderline High Cholesterol: 200-239 mg/dLHigh Cholesterol: greater than 239 mg/dL LDL Cholesterol Calculated 103(H) <100 mg/dL [facility] Comment:Desirable LDL: less than 100 mg/dLNear Optimal/Above Optimal LDL: 110- 129 mg/dLBorderline High LDL: 130-159 mg/dLHigh LDL: 160-189 mg/dLVery High LDL: greater than or equal to 190 mg/dL HDL Cholesterol 45 >40 mg/dL [facility] Comment:Desirable HDL: great er than 40 mg/dL Note: This HDL assay may give artificially low results in patients with liver disease. Blood Venous blood specimen / Unknown 05/03/2024 11:31 AM EST 05/03/2024 1:18 PM EST Cherrie Saul DO LAB BLOOD ORDERABLES Final R esult [facility] [address] [place] [phone] * Pap Smear (07/12/2020) Pap Negative for intraephithelial lesion or malignancy Negative for intraephithelial lesion or malignancy, Other HPV Undetected Undetected, Indeterminate, Quantitative, Not Detected Historical Provider HEALTH MAINTENANCE Final Result from Last 3 Months or Most Recently Relevant to Health Maintenance [facility] [address] [place] [id number] Care Teams Private Secretary Relationship Specialty Start Date End Date Cherrie Saul DO [address] [place] [phone] PCP - General Family Medicine 02/24/15
--- OUTSIDE RECORDS SUMMARY | 2024-10-19 10:40 | XMS_ITS | Clinical Summary ---
Author Organization 175 [facility] Address 175 [place] [address] Phone Care Team Providers Care Coloring Room Man Name Role Phone Cherrie Saul Primary Care Provider [phone] Allergies No known active allergies Medications acetaminophen (TYLENOL 8 HOUR) 650 mg 8 hr tablet Take 1 tablet (650 mg total) by mouth every 8 hours as needed. 05/03/2024 05/03/20 25 Active cholecalciferol (VITAMIN D-3) 125 mcg (5,000 unit) capsule Take 1 capsule (5,000 Units total) by mouth daily. 12/02/2023 Active tirzepatide, weight loss, (Zepbound) 10 mg/0.5 mL injection Inject 0.5 mL (10 mg total) under the skin every 7 (seven) days for 28 days. 2 mL 09/16/2024 10/15/19 25 Active Problems No known active problems Encounters Date Type Department Care Team Description 10/19/2024 Telephone Bariatric Surgery [address] [phone] Chasity Koo MD Med Refill (Zepbound 10MG) 09/16/2024 Telephone Bariatric Surgery [address] [phone] Chasity Koo MD Med Refill (Zepbound) 08/19/2024 2:45 PM EDT Office Visit Bariatric Surgery [address] [phone] Chasity Koo MD Class 1 obesity due to excess calories with body mass index (BMI) of 31.0 to 31.9 in adult, unspecified whether serious comorbidity present (Primary Dx) 08/16/2024 Telephone Bariatric Surgery - [place] [address] [phone] Chasity Koo MD Med Refill (Zepbound w/titration) from Last 3 Months Social History Tobacco Use Types Packs/Day Years Used Date Smoking Tobacco: Never Assessed Comments Unknown Sex and Gender Information Value Date Recorded Sex Assigned at Not on file Legal Sex Female 11:03 AM EDT Gender Identity Not on file Sexual Orientation Not on file Last Filed Vital Signs Vital Sign Reading Time Taken Comments Blood Pressure 100/70 08/19/2024 2:50 PM EDT Pulse 84 08/19/2024 2:50 PM EDT Temperature 36.6 ??C (97.8 ??F) 08/19/2024 2:50 PM ED T Respiratory Rate - - Oxygen Saturation - - Inhaled Oxygen Concentration - - Weight 76.7 kg (169 lb) 08/19/2024 2:50 PM EDT Height 154.9 cm (5' 1 ) 08/19/2024 2:50 PM EDT Body Mass Index 31.93 08/19/2024 2:50 PM EDT Plan of Treatment Upcoming Encounters Date Type Department Care Team (Late st Contact Info) Description 02/22/2025 1:45 PM EDT Office Visit Bariatric Surgery [facility] [address] [phone] Chasity Koo MD [address] [place] [phone] Health Maintenance Due Date Last Done Comments HPV Vaccines (2 - Risk 3-dose series) 06/24/2007 05/27/2007 Cervical Cancer Screening: Pap Smear 2011 Social Influencers of Health Screening 01/02/2024 COVID-19 Vaccine ( season) 2024 04/13/2021, 07/30/2020, 07/10/2020 Depression Screening 04/02/2024 04/02/2023 DTaP,Tdap,and Td Vaccines (7 - Td or Tdap) 01/18/2025 01/18/2015, 03/10/2003, 05/03/1997, Additional history exists Influenza Vaccine (Season Ended) 2025 03/24/2022, 05/10/2020, 08/13/2018, Additional history exists Cholesterol Screening (Lipid Panel) 05/03/2029 05/03/2024 MMR Vaccines Completed 07/31/1993, 08/31/1992 Varicella Vaccines Aged Out 10/31/1994 No longer eligible based on patient's age to complete this topic HIB Vaccines Completed 05/03/1997, 06/1992, 02/01/1991, Additional history exists IPV Vaccines Completed 05/03/1997, 07/1994, 1990, Additional history exists Hepatitis B Vaccines Completed 07/03/1998, 11/28/1997, 08/01/1997 Meningococcal ACWY Vaccine Completed 05/27/2007 Pneumococcal Vaccine: Pediatrics (0 to 5 Years) and At-Risk Patients (6 to 64 Years) Completed 12/02/2023 HIV Screening Completed 05/03/2024 Hepatitis C Screening Completed 05/03/2024, 022 Hepatitis A Vaccines Aged Out No long er eligible based on patient's age to complete this topic Meningococcal B Vaccine Aged Out No l onger eligible based on patient's age to complete this topic RSV Immunization Patients Under 20 months Aged Out No longer eligible based on patient's age to complete this topic Insurance MEDICAID - [place] Care Teams Coloring Room Man Relationship Specialty Start Date End Date Cherrie Saul DO [address] [place] [address] PCP - General Family Medicine 04/14/24
--- OUTSIDE RECORDS SUMMARY | 2024-10-19 10:40 | XMS_ITS | Encounter Summary ---
Author Organization [employer] [facility] Address [address] [place] [address] [address] [place] [address] Care Team Providers Care Station Helper Name Role Phone Cherrie Saul DO Primary Care Provider [phone] Reason for Visit * Reason Onset Date Comments triage 05/16/2022 Encounter Details Date Type Department Care Team (Late st Contact Info) Description 05/16/2022 Telephone [facility] MED[facility] [address] [place] [phone] Cherrie Saul DO [address] [place] [phone] triage Social History Tobacco Use Types Packs/Day Years Used Date Smoking Tobacco: Never Assessed Comments Unknown Sex and Gender Information Value Date Recorded Sex Assigned at Female 04/01/2022 10:15 AM EDT Legal Sex Female 10:15 AM EDT Gender Identity Female 04/01/2022 10:15 AM EDT Sexual Orientation Straight 04/01/2022 10 :15 AM EDT documented as of this encounter Miscellaneous Notes * Telephone Encounter - Anibal Guido - 05/16/2022 12:11 PM EST Symptom: Back Pain - Not From Injury upper back Outcome: Schedule an appointment to be seen within 3 days Reason: No high acuity concerns reported by caller The caller accepted this outcome Speaks czech documented in this encounter Plan of Treatment Upcoming Encounters Date Type Department Care Team (Late st Contact Info) Description 12/24/2024 11:45 AM EDT Office Visit [facility] [address] [place] [address] Demetra Kaplan MD 230 [place] [address] documented as of this encounter Visit Diagnoses Not on filedocumented in this encounter Care Teams Station Helper Relationship Specialty Start Date End Date Cherrie Saul DO 230 [place] [address] PCP - General Family Medicine 02/24/15 documented as of this encounter
[2024-10-19 11:34] LABS: MANUAL DIFF FLAG NO
[2024-10-19 11:58] LABS: Basophils Percent Auto 0.4 % (0-2); Eosinophils Absolute Auto 0.1 X10*3/uL (0.0-0.4); Eosinophils Percent Auto 1.4 % (0-4); Hematocrit 40.7 % (37.0-47.0); Hemoglobin 13.4 g/dl (12.0-16.0); Imm Gran Abs Auto 0.02 X10*3/uL (0.00-0.03); Imm Gran Pct Auto 0.3 % (0.0-0.4); Lymphocytes Absolute Auto 1.6 X10*3/uL (1.2-4.9); Lymphocytes Percent Auto 20.2 % (20-40); Mean Corpuscular HGB Conc 32.9 g/dl (31.0-35.0); Mean Corpuscular Volume 85.1 fL (80.0-98.0); Mean Platelet Volume 10.7 fL (9.4-12.3); Monocytes Absolute Auto 0.4 X10*3/uL (0.1-1.2); Monocytes Percent Auto 5.2 % (2-11); Neutrophils Absolute Auto 5.6 x10*3/uL (2.0-8.3); Neutrophils Percent Auto 72.5 % (45-73); Platelet Count 304 X10*3/uL (160-400); Red Blood Count 4.78 X10*6/uL (4.20-5.50); Red Cell Distribution Width 14.5 % (11.0-16.0); White Blood Count 7.8 X10*3/uL (4.8-10.8)
[2024-10-19 12:11] LABS: Anion Gap 11 (12-20); Blood Urea Nitrogen 9 mg/dL (9-16); C Reactive Protein 0.72 mg/dL (< or = 0.50); Calcium 10.1 mg/dL (8.4-10.2); Carbon Dioxide 27 mmol/L (22-29); Chloride 106 mmol/L (96-108); Estimated Glomerular Filt Rate > 60; Glucose Random 96 mg/dL (60-115); Potassium 3.8 mmol/L (3.3-5.1); Sodium 140 mmol/L (135-145)
[2024-10-19 12:17] LABS: Rheumatoid Factor < 13.0 IU/mL (<15.0)
[2024-10-19 12:39] LABS: Erythrocyte Sedimentation Rate 11 MM/HR (0-20)
[2024-10-21 07:02] LABS: Lyme Abs Screen <0.90 index
[2024-10-21 16:08] LABS: Anti Nuclear Antibody Screen NEGATIVE (NEGATIVE)
== END 2024-10-19 09:42 | disposition home or self-care (01) ==
LOC: HO.HHCL 09:41
PROVIDERS: Visit Provider Family Medicine
DX: E21.3 Hyperparathyroidism, unspecified (principal); R22.1 Localized swelling, mass and lump, neck; M89.8X1 Other specified disorders of bone, shoulder; G89.29 Other chronic pain; K42.9 Umbilical hernia without obstruction or gangrene; M79.601 Pain in right arm; M54.50 Low back pain, unspecified; Z00.00 Encounter for general adult medical examination without abnormal findings
CPT/HCPCS: 36415; 80048; 82550; 85025; 85652; 86038; 86140; 86431; 86617; 86618